=== PATIENT | female | born 1960 | race Two or more races ===

== ENCOUNTER 2023-04-03 19:13 | Inpatient (IN) | payer BC ==
[~2023-04-03] VITALS: Ht 147.3 cm; Wt 59.4 kg
[2023-04-03 20:25] LABS: BASOPHILS # (AUTO) 0.1 K/uL (0.0-0.2); BASOPHILS % (AUTO) 0.7 % (0.0-2.0); EOSINOPHILS % (AUTO) 0.4 % (0.0-6.0); HEMATOCRIT 38 % (33-45); HEMOGLOBIN 12.3 g/dL (11.5-14.8); MEAN CORPUSCULAR HEMOGLOBIN 29 PG (26.0-33.0); MEAN CORPUSCULAR HGB CONC 33 g/dl (31.0-36.0); MEAN CORPUSCULAR VOLUME 90 fL (82-100); MONOCYTES # (AUTO) 0.5 K/uL (0.1-1.30); MONOCYTES % (AUTO) 7.1 % (2.0-12.0); NEUTROPHILS % (AUTO) 78.8 % (43.0-81.0); PLATELET COUNT (AUTO) 167 K/uL (150-450); RED CELL DISTRIBUTION WIDTH 16.7 % (11.5-15.0); WHITE BLOOD COUNT (AUTO) 7.6 K/uL (4.3-11.0)
[2023-04-03 20:50] LABS: CALCIUM, SERUM 8.9 mg/dL (8.5-10.1); CARBON DIOXIDE 22 mmol/L (21-32); CHLORIDE 105 mmol/L (98-107); GLUCOSE 179 mg/dL (74-106); SODIUM SERUM 139 mmol/L (136-145); UREA NITROGEN, BLOOD 22 mg/dL (7-18)
[2023-04-03 20:58] LABS: ALANINE AMINOTRANSFERASE 24 U/L (12-78); ALBUMIN 3.4 g/dL (3.4-5.0); ALKALINE PHOSPHATASE 255 U/L (46-116); ASPARTATE AMINOTRANSFERASE 30 U/L (15-37); BILIRUBIN,DIRECT 1.1 mg/dL (0.0-0.2); BILIRUBIN,TOTAL 2.3 mg/dL (0.2-1.0); TOTAL PROTEIN, SERUM 7.5 g/dL (6.4-8.2)
[2023-04-03] MEDS ORDERED: ENOXAPARIN SODIUM 80 MG/0.8 ML DISP.SYRIN SQ ONE (22:00)
[2023-04-03] MEDS ORDERED: NITROGLYCERIN PACKET 1 GM PACKET TD ONE (22:00)
[2023-04-03] MEDS ORDERED: ASPIRIN 325 MG TABLET PO ONE (22:00)
[2023-04-03] MEDS ORDERED: ENOXAPARIN SODIUM 60 MG/0.6 ML DISP.SYRIN SQ ONE (22:07)
[2023-04-03] MEDS ORDERED: NITROGLYCERIN PACKET 1 GM PACKET ONE (22:07)
[2023-04-03] MEDS ORDERED: POTASSIUM CL. PREMIX PERIPHER. 50 ML ONE ×2 (22:07→23:35)
[2023-04-03] MEDS ORDERED: ASPIRIN 325 MG TABLET ONE (22:08)
[2023-04-03] MEDS: POTASSIUM CL. PREMIX PERIPHER. 50 ML IV SCH ×2 (22:30→23:40)
[2023-04-04] MEDS ORDERED: MORPHINE SULFATE INJ 2 MG/ML DISP.SYRIN IV PRN (01:00)
[2023-04-04] MEDS ORDERED: ONDANSETRON HCL/PF 4 MG/2 ML VIAL IVP PRN (01:00)
[2023-04-04] MEDS ORDERED: MAGNESIUM HYDROXIDE 30 ML UDC PO PRN (01:00)
[2023-04-04] MEDS ORDERED: MAG HYDROX/AL HYDROX/SIMETH 30 ML UDC PO PRN (01:00)
[2023-04-04] MEDS ORDERED: ZOLPIDEM TARTRATE 5 MG TABLET PO PRN (01:00)
[2023-04-04] MEDS ORDERED: NITROGLYCERIN 0.4 MG/TAB BOTTLE SL PRN (01:00)
[2023-04-04] MEDS ORDERED: Z GUARD REMEDY 4 OZ OINT TP PRN (01:00)
[2023-04-04] MEDS ORDERED: ACETAMINOPHEN 325 MG TABLET PO PRN (01:00)
[2023-04-04 03:00] VITALS: BP 129/83; TEMP 97.6; O2SAT 98
[2023-04-04 04:00] VITALS: BP 91/69; TEMP 97.3; O2SAT 99
[2023-04-04] MEDS ORDERED: FURO80TA85 PO (08:41)
[2023-04-04] MEDS ORDERED: ASPI-1169 PO (08:41)
[2023-04-04] MEDS ORDERED: METF-440 PO (08:41)
[2023-04-04] MEDS ORDERED: CARV3.12 PO (08:41)
[2023-04-04] MEDS ORDERED: CLOP75TA15 PO (08:41)
[2023-04-04] MEDS ORDERED: RANO500T3 PO (08:41)
[2023-04-04] MEDS ORDERED: FURO-144 PO (08:41)
[2023-04-04] MEDS ORDERED: ATOR80TA PO (08:41)
[2023-04-04] MEDS ORDERED: CHOL500062 PO (08:41)
[2023-04-04] MEDS: ASPIRIN 81 MG TAB.CHEW PO SCH (09:00)
[2023-04-04] MEDS ORDERED: DEXTROSE 50%-WATER 50 ML DISP.SYRIN IV PRN (09:00)
[2023-04-04] MEDS ORDERED: FUROSEMIDE 40 MG TABLET PO SCH (09:00)
[2023-04-04] MEDS ORDERED: ASPIRIN 81 MG TAB.CHEW PO SCH (09:00)
[2023-04-04] MEDS: CLOPIDOGREL BISULFATE 75 MG TABLET PO SCH (09:23)
[2023-04-04] MEDS: METFORMIN 500 MG TABLET PO SCH ×2 (09:23→17:46)
[2023-04-04] MEDS: RANOLAZINE 500 MG TAB.ER.12H PO SCH ×2 (09:23→17:46)
[2023-04-04] MEDS: CARVEDILOL 3.125 MG TABLET PO SCH ×2 (09:24→17:00)
[2023-04-04] MEDS: ENOXAPARIN SODIUM 60 MG/0.6 ML DISP.SYRIN SQ SCH ×2 (09:40→21:53)
[2023-04-04 10:32] LABS: CREATININE 1.1 mg/dL (0.6-1.3); POTASSIUM 3.5 mmol/L (3.5-5.1)
[2023-04-04 10:34] LABS: EOSINOPHILS % (AUTO) 0.6 % (0.0-6.0); HEMOGLOBIN 12.9 g/dL (11.5-14.8); MEAN CORPUSCULAR HEMOGLOBIN 30 PG (26.0-33.0); MONOCYTES # (AUTO) 0.6 K/uL (0.1-1.30); RED BLOOD CELL COUNT(AUTO) 4.36 MIL/uL (4.0-5.2)
[2023-04-04 10:37] LABS: BASOPHILS % (AUTO) 0.5 % (0.0-2.0); HEMATOCRIT 39 % (33-45); LYMPHOCYTES # (AUTO) 1.3 K/uL (0.8-4.8); LYMPHOCYTES % (AUTO) 18.1 % (20.0-44.0); MEAN CORPUSCULAR HGB CONC 33 g/dl (31.0-36.0); MEAN CORPUSCULAR VOLUME 89 fL (82-100); MONOCYTES % (AUTO) 8.6 % (2.0-12.0); NEUTROPHILS # (AUTO) 5.3 K/uL (1.8-8.9); NEUTROPHILS % (AUTO) 72.2 % (43.0-81.0); PLATELET COUNT (AUTO) 163 K/uL (150-450); RED CELL DISTRIBUTION WIDTH 16.2 % (11.5-15.0); WHITE BLOOD COUNT (AUTO) 7.4 K/uL (4.3-11.0)
[2023-04-04 10:39] LABS: ALBUMIN 3.3 g/dL (3.4-5.0); BILIRUBIN,TOTAL 2.1 mg/dL (0.2-1.0); MAGNESIUM 1.6 mg/dL (1.8-2.4); TOTAL PROTEIN, SERUM 7.8 g/dL (6.4-8.2)
[2023-04-04 11:02] LABS: THYROID STIMULATING HORMONE 2.125 uIU/mL (0.358-3.74)
[2023-04-04] MEDS: BLOOD SUGAR DIAGNOSTIC 1 EACH STRIP IN SCH ×3 (11:44→23:32)
[2023-04-04] MEDS: INSULIN REGULAR, HUMAN 100 UNIT/ML 3 ML VIAL SQ PRN ×2 (13:00→17:49)
[2023-04-04 16:49] VITALS: BP 91/69; TEMP 97.3; O2SAT 99
[2023-04-04] MEDS ORDERED: Magnesium 1GM/D5W 100ML PREMIX PIGGYBACK IV ONE (18:00)
[2023-04-04 21:27] VITALS: BP 97/55; TEMP 97.6; O2SAT 100
[2023-04-04] MEDS: ATORVASTATIN 40 MG TABLET PO SCH (21:32)
[2023-04-04 21:35] LABS: INR 1.36 (0.91-1.10)
[2023-04-05 00:52] VITALS: BP 110/74; TEMP 97.9; O2SAT 100
[2023-04-05 04:47] VITALS: BP 108/52; TEMP 97.8; O2SAT 95
[2023-04-05 06:00] LABS: BASOPHILS % (AUTO) 0.4 % (0.0-2.0); EOSINOPHILS # (AUTO) 0.1 K/uL (0.0-0.7); EOSINOPHILS % (AUTO) 1.1 % (0.0-6.0); HEMATOCRIT 38 % (33-45); HEMOGLOBIN 12.2 g/dL (11.5-14.8); LYMPHOCYTES # (AUTO) 2.3 K/uL (0.8-4.8); LYMPHOCYTES % (AUTO) 31.4 % (20.0-44.0); MEAN CORPUSCULAR HEMOGLOBIN 29 PG (26.0-33.0); MEAN CORPUSCULAR HGB CONC 32 g/dl (31.0-36.0); MEAN CORPUSCULAR VOLUME 90 fL (82-100); MONOCYTES # (AUTO) 0.7 K/uL (0.1-1.30); MONOCYTES % (AUTO) 9.5 % (2.0-12.0); NEUTROPHILS # (AUTO) 4.3 K/uL (1.8-8.9); NEUTROPHILS % (AUTO) 57.6 % (43.0-81.0); PLATELET COUNT (AUTO) 149 K/uL (150-450); RED CELL DISTRIBUTION WIDTH 16.4 % (11.5-15.0); WHITE BLOOD COUNT (AUTO) 7.4 K/uL (4.3-11.0)
[2023-04-05 06:20] LABS: CALCIUM, SERUM 9.2 mg/dL (8.5-10.1); CREATININE 0.8 mg/dL (0.6-1.3); PHOSPHORUS 2.9 mg/dL (2.5-4.9)
[2023-04-05] MEDS: BLOOD SUGAR DIAGNOSTIC 1 EACH STRIP IN SCH ×4 (07:01→22:12)
[2023-04-05 08:00] VITALS: BP 100/65; TEMP 97.7; O2SAT 98
[2023-04-05] MEDS: CLOPIDOGREL BISULFATE 75 MG TABLET PO SCH (08:32)
[2023-04-05] MEDS: FUROSEMIDE 40 MG TABLET PO SCH (08:32)
[2023-04-05] MEDS: ASPIRIN 81 MG TAB.CHEW PO SCH (08:32)
[2023-04-05] MEDS: METFORMIN 500 MG TABLET PO SCH ×2 (08:32→16:46)
[2023-04-05] MEDS: POTASSIUM CHLORIDE 20 MEQ TAB.PRT.SR PO SCH ×3 (08:32→10:40)
[2023-04-05] MEDS: RANOLAZINE 500 MG TAB.ER.12H PO SCH ×2 (08:33→16:46)
[2023-04-05] MEDS: ENOXAPARIN SODIUM 40 MG/0.4 ML DISP.SYRIN SQ SCH (08:35)
[2023-04-05] MEDS: CARVEDILOL 3.125 MG TABLET PO SCH ×2 (09:00→17:00)
[2023-04-05] MEDS: INSULIN REGULAR, HUMAN 100 UNIT/ML 3 ML VIAL SQ PRN ×3 (11:41→22:19)
[2023-04-05 12:00] VITALS: BP 114/83; TEMP 97.8; O2SAT 99
[2023-04-05 16:00] VITALS: BP 102/72; TEMP 97.6; O2SAT 100
[2023-04-05] MEDS: ACETAMINOPHEN 325 MG TABLET PO PRN ×2 (17:08→23:43)
[2023-04-05 20:00] VITALS: BP 112/83; TEMP 97.4; O2SAT 100
[2023-04-05] MEDS: ATORVASTATIN 40 MG TABLET PO SCH (22:13)
[2023-04-06] VITALS: BP 105/79; TEMP 98.1; O2SAT 99
[2023-04-06] MEDS ORDERED: LORAZEPAM 0.5 MG TABLET PO PRN (01:00)
[2023-04-06 04:00] VITALS: BP 110/79; TEMP 98.4; O2SAT 99
[2023-04-06] MEDS ORDERED: IPRATROPIUM NEB FS 0.5 MG/2.5 ML AMPUL.NEB NEB PRN (04:30)
[2023-04-06] MEDS ORDERED: ALBUTEROL FS 2.5 MG/3 ML VIAL.NEB NEB PRN (05:00)
[2023-04-06 05:10] VITALS: O2SAT 99
[2023-04-06 05:20] VITALS: O2SAT 99
[2023-04-06 06:17] LABS: CALCIUM, SERUM 9.3 mg/dL (8.5-10.1); POTASSIUM 3.7 mmol/L (3.5-5.1)
[2023-04-06 07:00] VITALS: BP 105/74; TEMP 97.4; O2SAT 100
[2023-04-06] MEDS: ENOXAPARIN SODIUM 40 MG/0.4 ML DISP.SYRIN SQ SCH (07:47)
[2023-04-06] MEDS: BLOOD SUGAR DIAGNOSTIC 1 EACH STRIP IN SCH ×4 (07:55→22:44)
[2023-04-06] MEDS: CARVEDILOL 3.125 MG TABLET PO SCH ×2 (09:00→16:35)
[2023-04-06] MEDS: RANOLAZINE 500 MG TAB.ER.12H PO SCH ×2 (09:25→16:36)
[2023-04-06] MEDS: ASPIRIN 81 MG TAB.CHEW PO SCH (09:25)
[2023-04-06] MEDS: CLOPIDOGREL BISULFATE 75 MG TABLET PO SCH (09:25)
[2023-04-06] MEDS: METFORMIN 500 MG TABLET PO SCH ×2 (09:25→16:36)
[2023-04-06] MEDS: FUROSEMIDE 40 MG TABLET PO SCH (09:25)
[2023-04-06] MEDS: INSULIN REGULAR, HUMAN 100 UNIT/ML 3 ML VIAL SQ PRN ×3 (11:32→23:27)
[2023-04-06 20:29] VITALS: BP 131/75; TEMP 97.5; O2SAT 96
[2023-04-06] MEDS: ATORVASTATIN 40 MG TABLET PO SCH (22:44)
[2023-04-07 01:08] VITALS: BP 112/80; TEMP 97.2; O2SAT 99
[2023-04-07 04:10] VITALS: BP_SYST 119; BP_SYST 170; BP_DIAS 64; BP_DIAS 78; TEMP 97.4; O2SAT 97
[2023-04-07 06:01] LABS: CALCIUM, SERUM 8.9 mg/dL (8.5-10.1); CREATININE 0.9 mg/dL (0.6-1.3); MAGNESIUM 1.6 mg/dL (1.8-2.4); POTASSIUM 3.8 mmol/L (3.5-5.1)
[2023-04-07] MEDS: BLOOD SUGAR DIAGNOSTIC 1 EACH STRIP IN SCH ×4 (06:44→22:39)
[2023-04-07 08:00] VITALS: BP 117/78; TEMP 98.7; O2SAT 98
[2023-04-07] MEDS: ENOXAPARIN SODIUM 40 MG/0.4 ML DISP.SYRIN SQ SCH (08:30)
[2023-04-07] MEDS: CLOPIDOGREL BISULFATE 75 MG TABLET PO SCH ×2 (09:00→10:07)
[2023-04-07] MEDS: CARVEDILOL 3.125 MG TABLET PO SCH ×3 (09:00→17:05)
[2023-04-07] MEDS: ASPIRIN 81 MG TAB.CHEW PO SCH ×2 (09:00→10:07)
[2023-04-07] MEDS: RANOLAZINE 500 MG TAB.ER.12H PO SCH ×3 (09:00→17:05)
[2023-04-07] MEDS: METFORMIN 500 MG TABLET PO SCH ×3 (09:00→17:00)
[2023-04-07] MEDS: FUROSEMIDE 40 MG TABLET PO SCH ×2 (09:00→10:07)
[2023-04-07] MEDS: Magnesium 1GM/D5W 100ML PREMIX 100 ML IV SCH ×2 (09:00→10:06)
[2023-04-07] MEDS ORDERED: METOPROLOL TARTRATE INJ 5 MG/5 ML AMPUL ONE (10:50)
[2023-04-07] MEDS ORDERED: NITROGLYCERIN 0.4 MG/TAB BOTTLE ONE (10:50)
[2023-04-07] MEDS ORDERED: CT SWABBABLE VALVE TRANS SET 1 EA INFUS.SET MC ONE (10:50)
[2023-04-07] MEDS ORDERED: IV NS 0.9% 250 ML IV ONE (10:50)
[2023-04-07] MEDS ORDERED: IOHEXOL-350 100 ML VIAL IV ONE (10:50)
[2023-04-07] MEDS: METOPROLOL TARTRATE INJ 5 MG/5 ML AMPUL IVP PRN ×3 (11:10→11:20)
[2023-04-07] MEDS ORDERED: NITROGLYCERIN 0.4 MG/TAB BOTTLE SL ONE (11:30)
[2023-04-07 12:00] VITALS: BP 114/70; TEMP 98.5; O2SAT 97
[2023-04-07] MEDS: ACETAMINOPHEN 325 MG TABLET PO PRN (15:47)
[2023-04-07 16:00] VITALS: BP 109/87; TEMP 97.6; O2SAT 96
[2023-04-07] MEDS: INSULIN REGULAR, HUMAN 100 UNIT/ML 3 ML VIAL SQ PRN ×2 (17:24→22:42)
[2023-04-07 20:00] VITALS: BP 104/66; TEMP 97.9; O2SAT 98
[2023-04-07] MEDS: ATORVASTATIN 40 MG TABLET PO SCH (22:27)
[2023-04-08] VITALS: BP 97/69; TEMP 97.8; O2SAT 100
[2023-04-08] MEDS: BLOOD SUGAR DIAGNOSTIC 1 EACH STRIP IN SCH ×3 (05:58→17:25)
[2023-04-08 08:00] VITALS: BP 101/77; TEMP 98.1; O2SAT 98
[2023-04-08] MEDS: FUROSEMIDE 40 MG TABLET PO SCH (09:00)
[2023-04-08] MEDS: CARVEDILOL 3.125 MG TABLET PO SCH ×2 (09:00→17:00)
[2023-04-08] MEDS: ASPIRIN 81 MG TAB.CHEW PO SCH (09:33)
[2023-04-08] MEDS: CLOPIDOGREL BISULFATE 75 MG TABLET PO SCH (09:33)
[2023-04-08] MEDS: RANOLAZINE 500 MG TAB.ER.12H PO SCH ×2 (09:33→16:57)
[2023-04-08] MEDS: ENOXAPARIN SODIUM 40 MG/0.4 ML DISP.SYRIN SQ SCH (09:37)
[2023-04-08 12:00] VITALS: BP 113/78; TEMP 98; O2SAT 99
[2023-04-08] MEDS: INSULIN REGULAR, HUMAN 100 UNIT/ML 3 ML VIAL SQ PRN ×2 (13:28→17:25)
[2023-04-08 16:00] VITALS: BP 101/72; TEMP 97.6; O2SAT 100
[2023-04-08 17:00] VITALS: BP 101/72
[2023-04-08] MEDS ORDERED: METF-440 PO (17:05)
[2023-04-09] MEDS ORDERED: METFORMIN 500 MG TABLET PO SCH (09:00)
== END 2023-04-08 20:31 | disposition home or self-care (01) | DRG 280 ==
LOC: ER 20:38 → TELE 04-04 02:45
PROVIDERS: ADMIT Nurse Practitioner Acute Care; ATTEND Internal Medicine
DX: I25.10 Atherosclerotic heart disease of native coronary artery without angina pectoris (principal); I21.4 Non-ST elevation (NSTEMI) myocardial infarction; I50.23 Acute on chronic systolic (congestive) heart failure; I42.9 Cardiomyopathy, unspecified; E11.65 Type 2 diabetes mellitus with hyperglycemia; I11.0 Hypertensive heart disease with heart failure; Z90.710 Acquired absence of both cervix and uterus; Z87.19 Personal history of other diseases of the digestive system; Z95.5 Presence of coronary angioplasty implant and graft; Z98.890 Other specified postprocedural states; I25.2 Old myocardial infarction; E78.5 Hyperlipidemia, unspecified; E87.6 Hypokalemia; Z79.82 Long term (current) use of aspirin; Z86.73 Personal history of transient ischemic attack (TIA), and cerebral infarction without residual deficits; R74.01 Elevation of levels of liver transaminase levels; Z79.02 Long term (current) use of antithrombotics/antiplatelets; Z79.899 Other long term (current) drug therapy
CPT/HCPCS: 36415; 71045-TC; 75574; 80048-TC; 80053-TC; 80061-TC; 80076-TC; 82962-TC; 83735-TC; 84100-TC; 84439-TC; 84443-TC; 84484-TC; 85025-TC; 85610-TC; 87081-TC; 93307-TC; 94799-TC; 97110-TC; 97116-TC; 97530-TC; 97535-TC; A4223; A6253; G0378; J1650; J1815; J2270; J3475; J3480; J3490; J7050; Q9967